=== PATIENT | female | born 1960 | race Caucasian/White ===

== ENCOUNTER 2020-06-26 12:42 | Emergency (ER) | payer SELFPAY | END 2020-06-26 14:30 | disposition left against medical advice (07) | DRG 951 | LOC: ED 12:42 → LWOBS 14:29 → ED 14:29 → LWOBS 14:30 | DX: Z91.19 Patient's noncompliance with other medical treatment and regimen (principal) ==

== ENCOUNTER 2020-06-30 11:35 | Inpatient (IN) | payer SELFPAY ==
[~2020-06-30] VITALS: Ht 147.3 cm; Wt 60.8 kg
[2020-06-30] VITALS (20 sets, daily range): BP systolic 123–187; BP diastolic 63–105
--- NOTE | 2020-06-30 11:35 | NUR ---
I INSISTED TO PT IF I CAN TAKE HER TO ROOM VIA W/C. SHE FINALLY AGREED TO. PT TAKEN TO ROOM VIA W/C. STATES BEING TIRED, WORST HEADACHE EVER, AND BLURRED VISION
--- NOTE | 2020-06-30 12:00 | NUR ---
PT IN NO ACUTE DISTRESS, C/O BLURRY VISION AND HEADACHE 8/10 BEHIND BOTH EYES. C/O NOT TAKING MEDS FOR WEEKS BECAUSE "I DONT HAVE ANYMORE". JARON
[2020-06-30 12:26] LABS: HEMATOCRIT 44.7 % (37.0-47.0); HEMOGLOBIN 15.4 g/dl (12.0-16.0); IMMATURE GRANULOCYTES 0.1 % (0.0-5.0); MEAN CELL VOLUME 87.8 fL CALC (80.0-100.0); MEAN CORPUSCULAR HGB 30.3 pG CALC (26.0-32.0); MEAN CORPUSCULAR HGB CONC 34.5 g/dL CAL (32.0-36.0); NEUT# 4.16 thou/uL (2.00-7.15); RED BLOOD COUNT 5.09 mill/uL (4.20-5.60); RED CELL DISTRI WIDTH 12.1 % (11.5-15.5)
[2020-06-30 12:46] LABS: ALBUMIN 4.4 g/dL (3.2-5.0); ALKALINE PHOSPHATASE 88 u/l (38-126); ANION GAP 8 (6-22 (CALC)); BILIRUBIN, TOTAL 0.7 mg/dL (0.0-1.4); BUN 17 mg/dL (7-17); BUN/CREATININE RATIO 18 (12-20 (CALC)); CARBON DIOXIDE 31 mmol/l (22-30); CHLORIDE 104 mmol/l (95-108); GFR 57 ML/MIN (>=60 (CALC)); GFR FOR AFR.AMER. > 60 ML/MIN (>=60 (CALC)); POTASSIUM 3.3 mmol/l (3.5-5.1); SGOT/AST 46 u/l (14-36); SODIUM 139 mmol/l (137-146); TOTAL PROTEIN 7.9 g/dL (6.3-8.2)
--- NOTE | 2020-06-30 12:52 | NUR ---
PT MEDICATED FRO HEADACHE. STATES BLURRY VISION HAS SUBSIDED. INITAITED IV NICARDIPENE GTT PT BP INCREASED. EDP AWARE
--- NOTE | 2020-06-30 13:52 | NUR ---
PT RESTING SUPINE WITH LIGHTS DIMMED IN NO DISTRESS. IV CARDENE GTT INFUSING. PT STATES BLURRY VISION HAS RESOLVED. NIH 0
--- NOTE | 2020-06-30 14:24 | NUR ---
BP TRENDING DOWN. PT DENIES COMPLAINTS. UPDATED ON ADMIT AND AGREEABLE. NIH 0
--- NOTE | 2020-06-30 15:00 | NUR ---
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 PT AWAKE AND ALERT AND MAEW. SKIN PWD. STATES HEADACHE MUCH IMPROVED TO 2/10 NO LIGHT SENSITIVITY.
--- NOTE | 2020-06-30 15:07 | NUR ---
PT ARRIVED TO UNIT VIA STRETCHER WITH ER STAFF; ALERT AND ORIENTED AND IN STABLE CONDITION. CARDENE DRIP INFUSING AT 5 MG/HR UP ON ARRIVAL. AMBULATED TO BED WITH STEADY GAIT; ASSISTED TO BSC FOR VOID. VSS; BLOOD PRESSURE SLIGHTY ELEVATED. CONNECTED TO ATTACHMENTS. DENIES PAIN. RESPIRATIONS EVEN AND UNLABORED ON ROOM AIR. OREINTED TO ROOM AND CALL LIGHT SYSTEM. PLAN OF CARE DISCUSSED. PT ENCOURAGED TO VERBALIZE CONCERNS. STATES UNDERSTANDING. SAFETY MEASURES IN PLACE. CALL LIGHT WITHIN REACH.
--- NOTE | 2020-06-30 15:33 | NUR ---
CARDENE DRIP TITRATED DOWN TO 2.5 MG/HR. SNACK PROVIDED PER REQUEST. NORVASC AND POTASSIUM GIVEN PER ORDERS. PT PLEASANT AND COOPERATIVE; ANSWERS ADMISSION QUESTIONS WITHOUT DIFFICULTY.
[2020-06-30] MEDS ORDERED: DOXAZOSIN2 M1 PO (15:37)
[2020-06-30] MEDS ORDERED: ZESTRIL10 M1 PO (15:38)
[2020-06-30] MEDS ORDERED: HYDROCHLOROT12.5 MG PO (15:38)
--- NOTE | 2020-06-30 16:20 | NUR ---
HANNAH STANLEY AT BEDSIDE. PT TEARFUL AND VERBALIZING HER WISH TO BE CLOSER TO HER FAMILY. PT STATES, "I'M JUST FEELING SORRY FOR MYSELF." TLC OFFERED AND VISITOR NOW AT BEDSIDE.
--- NOTE | 2020-06-30 18:00 | NUR ---
[place] [facility] [place]OWEL [place]OV[place]. SET UP FOR DINNER. NO OTHER REQUESTS OR CONCERNS AT THIS TIME.
--- NOTE | 2020-06-30 19:30 | NUR ---
PT. SLEEPING AND AWAKENED FOR ASSESSMENT;ASSESSMENT COMPLETED. PT. DROWSY, BUT ALERT AND ORIENTED ALSO ABLE TO MOVE ALL EXTREMETIES. ASTROBIOLOGIST IN PLACE AND READING SR 80'S. B/P 139/72; CARDENE GTT STOPPED AT THIS TIME; WILL CONTINUE TO MONITOR. PT. DENIES NEEDS/PAIN. ENCOURAGED TO CALL FOR ANY NEEDS. CALL LIGHT IS IN REACH. WILL CONTINUE TO MONITOR.
--- NOTE | 2020-06-30 20:46 | NUR ---
SCHEDULED LOVENOX GIVEN; DENIES NEEDS/PAIN. B/P REMAINS WNL. CALL LIGHT IS IN REACH.
--- NOTE | 2020-06-30 22:51 | NUR ---
PT. C/O BUCHANAN; MEDICATED WITH ORDERED PRN TYLENOL;WILL REASSESS.
[2020-07-01] VITALS (25 sets, daily range): BP systolic 118–181; BP diastolic 63–100
--- NOTE | 2020-07-01 01:00 | NUR ---
PATIENT C/O HEADACHE. ADVISED TOO EARLY FOR TYLENOL. GIVEN COOL CLOTH TO FOREHEAD. OFFERED XANAX OR SLEEPING PILL, PATIENT REFUSES.
--- NOTE | 2020-07-01 02:00 | NUR ---
RESTING WITH EYES CLOSED. RESP NON-LABORED. VSS. SR ON MONITOR WITH INVERTED T WAVES.
--- NOTE | 2020-07-01 04:05 | NUR ---
RESTING WITH EYES CLSOED. RESP NON-LABORED. VSS.
--- NOTE | 2020-07-01 05:15 | NUR ---
C/O HEADACHE AND NAUSEA. MEDICATED WITH TYLENOL 650 MG PO FOR HEADACHE AND ZOFRAN 4 MG IVP FOR C/O NAUSEA.
[2020-07-01 05:20] LABS: HEMATOCRIT 38.9 % (37.0-47.0); MEAN CORPUSCULAR HGB 30.1 pG CALC (26.0-32.0); MEAN CORPUSCULAR HGB CONC 34.2 g/dL CAL (32.0-36.0); RED BLOOD COUNT 4.42 mill/uL (4.20-5.60); RED CELL DISTRI WIDTH 12.1 % (11.5-15.5)
[2020-07-01 05:22] LABS: HEMOGLOBIN 13.3 g/dl (12.0-16.0)
[2020-07-01 05:39] LABS: ANION GAP 9 (6-22 (CALC)); BUN 20 mg/dL (7-17); BUN/CREATININE RATIO 20 (12-20 (CALC)); CALCULATED LDLCHOLESTEROL 100 mg/dL (62-129 (CALC)); CARBON DIOXIDE 26 mmol/l (22-30); CHLORIDE 106 mmol/l (95-108); CHOLESTEROL HDL RATIO 3.6 (<4.4 (CALC)); GFR 57 ML/MIN (>=60 (CALC)); GFR FOR AFR.AMER. > 60 ML/MIN (>=60 (CALC)); HDL CHOLESTEROL 46 mg/dL (>=40); MAGNESIUM 1.9 mg/dL (1.6-2.3); POTASSIUM 3.7 mmol/l (3.5-5.1); SODIUM 137 mmol/l (137-146); TOTAL CHOLESTEROL 165 mg/dl (0-199); TOTAL TRIGLYCERIDES 93 mg/dl (30-149); VLDL CHOLESTROL 19 mg/dl (2-49 (CALC))
--- NOTE | 2020-07-01 06:05 | NUR ---
PATIENT AWAKENS TO NAME, STATES NAUSEA HAS SUBSIDED AND HEADACHE IS IMPROVING.
--- NOTE | 2020-07-01 07:29 | NUR ---
REPORT RECEIVED FROM HAYDEN LANGLEY. PT RESTING IN BED SEMI FOWLERS; ALERT AND ORIENTED. C/O HEADACHE 04/21; DECLINED OFFER FOR TYLENOL STATING THAT TYLENOL AND ICE PACKS ARE INEFFECTIVE. BP CURRENTLY 173/78; WILL GIVE SCHEDULED AM MEDS. RESPIRATIONS EVEN AND UNLABORED ON ROOM AIR. IV SITE APPEARS HEALTHY AND FLUSHES. PLAN OF CARE REVIEWED. PT ENCOURAGED TO VERBALIZE CONCERNS. STATES UNDERSTANDING. SAFETY MEASURES IN PLACE. CALL LIGHT WITHIN REACH.
--- NOTE | 2020-07-01 08:18 | NUR ---
AM BP MEDS GIVEN EARLY FOR ELEVATED BP OF 171/100 HR 80. PT SITTING UP EATING BREAKFAST.
--- NOTE | 2020-07-01 08:39 | NUR ---
DR. BASILIO AT BEDSIDE.
--- NOTE | 2020-07-01 09:05 | NUR ---
TRAMADOL GIVEN FOR 04/21 HEADACHE. BLOOD PRESSURE DOWN TO 155/90 HR 86.
--- NOTE | 2020-07-01 11:01 | NUR ---
PT REPORTS THAT TRAMADOL WAS NOT EFFECTIVE FOR HEADACHE. RESTING IN BED WATCHING TV WITH NO OTHER REQUESTS OR CONCERNS. INDEPENDENT TO BSC. CALL LIGHT WITHIN REACH.
--- NOTE | 2020-07-01 12:02 | NUR ---
PT FELL ASLEEP FOR NAP AND UPON WAKING FOR LUNCH REPORTS THAT HER HEADACHE HAS SUBSIDED; NOW C/O THAT HER HANDS ARE NUMB AND TINGLING. SHE IS ABLE TO SIT UP AND EAT HER LUNCH; MOBILITY OF HANDS NOT EFFECTED. BP 143/77 HR 86.
--- NOTE | 2020-07-01 14:21 | NUR ---
RESTING IN BED WITHOUT DISTRESS. NO REQUESTS OR CONCERNS. BLOOD PRESSURE MORE STABLE WITH SBP IN 130S-140S. TELE ON. IV SITE APPEARS HEALTHY. KASEY KELSEY INTACT TO BLE.
--- NOTE | 2020-07-01 15:00 | NUR ---
TRAMADOL GIVEN FOR 6/10 HEADACHE.
--- NOTE | 2020-07-01 17:30 | NUR ---
TRAMADOL EFFECTIVE FOR HEADACHE. PT UP TO CHAIR FOR LINEN CHANGE AND REPOSITIONED BACK INTO BED SEMI FOWLERS. PLEASANT AND TALKATIVE. CALL LIGHT WITHIN REACH.
--- NOTE | 2020-07-01 19:00 | NUR ---
PT. SITTING UP WATCHING TV. NO DISTRESS NOTED; ASSESSMENT COMPLETED. IV SITE PATENT AND SL. READING SR. B/P WNL. DENIES NEEDS/PAIN. ENCOURAGED TO CALL FOR ANY NEEDS. CALL LIGHT IS IN REACH. WILL CONTINUE TO MONITOR.
--- NOTE | 2020-07-01 19:33 | NUR ---
C/O BUCHANAN; VSS; MEDICATED WITH ORDERED PRN TYLENOL; WILL REASSESS.
--- NOTE | 2020-07-01 21:00 | NUR ---
SITTING UP IN BED WITH NO DISTRESS NOTED; WILL CONTINUE TO MONITOR.
--- NOTE | 2020-07-01 23:00 | NUR ---
RESTING IN BED WITH NO DISTRESS NOTED. DENIES NEEDS/PAIN. ENCOURAGED TO CALL FOR ANY NEEDS. CALL LIGHT IS IN REACH.
[2020-07-02] VITALS (8 sets, daily range): BP systolic 140–166; BP diastolic 75–92
--- NOTE | 2020-07-02 01:44 | NUR ---
C/O BUCHANAN AND MEDICATED WITH ORDERED PRN ULTRAM; WILL REASSESS.
--- NOTE | 2020-07-02 04:04 | NUR ---
RESTING IN BED WITH EYES CLOSED; RESP. EVEN AND UNLABORED. VSS. NO DISTRESS NOTED. CALL LIGHT IS IN REACH.
--- NOTE | 2020-07-02 05:35 | NUR ---
PT. DENIES PAIN. VSS. COMMODE EMPTIED. HOT TEA PROVIDED PER PT'S REQUEST. ENCOURAGED TO CALL FOR ANY NEEDS. CALL LIGHT IS IN REACH.
--- NOTE | 2020-07-02 08:00 | NUR ---
PT ALERT AND ORIENTED X 3. LUNGS CLEAR, RA. ABDOMEN SOFT, BENIGN, LAST BM TUESDAY. BP HOVERING AROUND 160 SYSTOLIC BUT AM MEDS NOT GIVEN YET. NO DISTRESS, PT HOPES FOR DISCHARGE TODAY.
[2020-07-02] MEDS ORDERED: AMLODIPINE BESYL5 MG PO (08:19)
[2020-07-02] MEDS ORDERED: TRAMADOL HCL50 MG PO ×2 (08:19→10:10)
[2020-07-02] MEDS ORDERED: LISINOPRIL20 MG PO (08:19)
[2020-07-02] MEDS ORDERED: HYDROCHLOROT12.5 MG PO (08:19)
--- NOTE | 2020-07-02 11:18 | NUR ---
PT HAS BEEN DISCHARGED TO HOME. PT VERBALIZED UNDERSTANDING OF DC INSTRUCTIONS, WAS PROVIDED ONE MONTH OF MEDICINES FREE OF CHARGE FROM [employer], WAS TAKEN TO HER VEHICLE, [facility] IN STABLE CONDITION.
== END 2020-07-02 11:15 | disposition home or self-care (01) | DRG 305 ==
LOC: ED 11:35 → ED-I 13:10 → ED 13:55 → ICU 13:56
PROVIDERS: Family Medicine; Nurse Practitioner; ADMIT Internal Medicine; ATTEND Internal Medicine
DX: I16.1 Hypertensive emergency (principal); I10 Essential (primary) hypertension; T46.5X6A Underdosing of other antihypertensive drugs, initial encounter; E87.6 Hypokalemia; F32.9 Major depressive disorder, single episode, unspecified; F41.9 Anxiety disorder, unspecified; Z91.120 Patient's intentional underdosing of medication regimen due to financial hardship; Z20.828 Contact with and (suspected) exposure to other viral communicable diseases
CPT/HCPCS: J1650

== ENCOUNTER 2020-10-11 18:57 | Emergency (ER) | payer SELFPAY ==
[~2020-10-11] VITALS: Ht 147.3 cm; Wt 72.0 kg
[~2020-10-11 18:57] MED LIST: AMLODIPINE BESYL5 MG PO; DOXAZOSIN2 M1 PO; HYDROCHLOROT12.5 MG PO; LISINOPRIL20 MG PO; TRAMADOL HCL50 MG PO; ZESTRIL10 M1 PO
[2020-10-11 20:08] LABS: IMMATURE GRANULOCYTES 0.7 % (0.0-5.0); MEAN CELL VOLUME 91.4 fL CALC (80.0-100.0); MEAN CORPUSCULAR HGB 30.1 pG CALC (26.0-32.0); MEAN CORPUSCULAR HGB CONC 32.9 g/dL CAL (32.0-36.0); NEUT# 3.24 thou/uL (2.00-7.15); RED BLOOD COUNT 3.59 mill/uL (4.20-5.60); RED CELL DISTRI WIDTH 13.2 % (11.5-15.5)
[2020-10-11 20:13] LABS: HEMATOCRIT 32.8 % (37.0-47.0); HEMOGLOBIN 10.8 g/dl (12.0-16.0)
[2020-10-11 20:20] LABS: ALBUMIN 3.9 g/dL (3.2-5.0); ALKALINE PHOSPHATASE 73 u/l (38-126); ANION GAP 10 (6-22 (CALC)); BUN 17 mg/dL (7-17); BUN/CREATININE RATIO 21 (12-20 (CALC)); CARBON DIOXIDE 29 mmol/l (22-30); CHLORIDE 101 mmol/l (95-108); CREATININE 0.8 mg/dL (0.5-1.0); GFR > 60 ML/MIN (>=60 (CALC)); GFR FOR AFR.AMER. > 60 ML/MIN (>=60 (CALC)); SGOT/AST 31 u/l (14-36); SODIUM 136 mmol/l (137-146); TOTAL PROTEIN 6.9 g/dL (6.3-8.2)
[2020-10-11 20:23] LABS: INTERNATIONAL NORMALIZED RATIO 0.9 RATIO (0.7-1.3); PROTHROMBIN TIME 9.3 SECONDS (9.0-12.5)
[2020-10-11 20:32] LABS: MYOGLOBIN 90 ng/mL (0 - 62)
[2020-10-11 20:35] LABS: D-DIMER 0.48 mg/L (0.19-0.60)
[2020-10-11 20:46] LABS: BILIRUBIN, TOTAL 0.3 mg/dL (0.0-1.4)
[2020-10-11] MEDS ORDERED: LAMICTAL100 M1 PO (21:32)
[2020-10-11] MEDS ORDERED: MAXZIDE-2537.5 MG/TA PO (21:32)
[2020-10-11] MEDS ORDERED: PAXIL40 MG PO (21:33)
[2020-10-11] MEDS ORDERED: NORVASC10 M1 PO (21:34)
[2020-10-11] MEDS ORDERED: LISINOPRIL20 MG PO (21:34)
[2020-10-11 21:58] LABS: URINE BILIRUBIN - DIPSTICK NEGATIVE (NEGATIVE); URINE BLOOD DIPSTICK NEGATIVE (NEGATIVE); URINE COLOR YELLOW; URINE GLUCOSE - DIPSTICK NEGATIVE (NEGATIVE); URINE KETONE NEGATIVE (NEGATIVE); URINE LEUK ESTERASE NEGATIVE (NEGATIVE); URINE NITRITE - DIPSTICK NEGATIVE (Negative); URINE PH 7.5 (4.5-8.0); URINE PROTEIN - DIPSTICK NEGATIVE (NEG-TRACE); URINE SPECIFIC GRAVITY 1.015; URINE UROBILINOGEN - DIPSTICK 0.2 E.U./dL (0.2)
[2020-10-11] MEDS ORDERED: PREDNISONE50 MG PO (22:18)
[2020-10-11] MEDS ORDERED: VENTOLIN HFA IN (22:18)
[2020-10-11] MEDS ORDERED: DOXYCYCL HYC100 MG PO (22:18)
[2020-10-11 22:50] VITALS: BP 159/82
== END 2020-10-11 22:50 | disposition home or self-care (01) | DRG 192 ==
LOC: ED 18:57
PROVIDERS: Family Medicine
DX: J44.1 Chronic obstructive pulmonary disease with (acute) exacerbation (principal); K04.7 Periapical abscess without sinus; K02.9 Dental caries, unspecified; I10 Essential (primary) hypertension; F17.200 Nicotine dependence, unspecified, uncomplicated; Z20.822 Contact with and (suspected) exposure to COVID-19